=== PATIENT | male | born 1935 | race Two or more races ===

== ENCOUNTER 2017-03-05 13:11 | Inpatient (IN) | payer OTHER ==
[~2017-03-05] VITALS: Ht 152.4 cm; Wt 53.1 kg
[2017-03-05] MEDS ORDERED: NKM (13:24)
[2017-03-05 13:55] LABS: MEAN CORPUSCULAR HEMOGLOBIN 24.5 PG (27.0-31.0); MEAN CORPUSCULAR HGB CONC 30.6 G/DL (32.0-36.0); MEAN CORPUSCULAR VOLUME 80 FL (80-99); MEAN PLATELET VOLUME 8.1 FL (6.5-10.1); PLATELET COUNT 187 K/UL (150-450); RED BLOOD COUNT 6.51 M/UL (4.70-6.10); RED CELL DISTRIBUTION WIDTH 13.8 % (11.6-14.8); WHITE BLOOD COUNT 20.7 K/UL (4.8-10.8)
[2017-03-05 13:56] VITALS: BP 128/83
[2017-03-05 14:01] LABS: APPEARANCE,URINE CLEAR; KETONES,URINE NEGATIVE (NEGATIVE); LEUKOCYTE ESTERASE ,URINE 1+ (NEGATIVE); NITRITE,URINE NEGATIVE (NEGATIVE); PH,URINE 5 (4.5-8.0); PROTEIN,URINE 2+ (NEGATIVE); UROBILINOGEN,URINE NORMAL MG/DL (0.0-1.0)
--- NOTE | 2017-03-05 14:08 | Diagnostic Imaging Report ---
Indication: Dyspnea Comparison: None A single view chest radiograph was obtained. Findings: There is a nodular density in the left perihilar region that requires further evaluation. The left hilum is also somewhat prominent. 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 The heart is mildly enlarged. Bones are osteopenic. Impression: Abnormal nodular density in the left perihilar region. Recommend further evaluation with contrast enhanced CT of the chest. Generalized, moderate reticular interstitial markings. Suspect mild degree of fibrosis. Superimposed, more acute interstitial pneumonitis or edema not excluded. Cardiomegaly.
[2017-03-05 14:11] LABS: ALANINE AMINOTRANSFERASE 16 U/L (3-41); ALBUMIN/GLOBULIN RATIO 0.8 (1.0-2.7); ANION GAP 19 (5-15); ASPARTATE AMINO TRANSFERASE 36 U/L (5-40); CALCIUM 16.2 mg/dL (8.6-10.2); CARBON DIOXIDE 28 mEQ/L (20-30); CHLORIDE 93 mEQ/L (98-107); CREATININE 1.5 mg/dL (0.7-1.2); HEMOLYSIS 6; POTASSIUM 3.6 mEQ/L (3.4-4.9); SODIUM 140 mEQ/L (135-145); TOTAL PROTEIN 8.2 g/dL (6.6-8.7); TROPONIN I < 0.30 ng/mL (<=0.30)
[2017-03-05 14:12] LABS: BACTERIA,URINE FEW /HPF; HYALINE CASTS, URINE 0-2 /LPF; SQUAMOUS EPITHELIAL CELL,UR OCCASIONAL /LPF (NONE/OCC)
[2017-03-05 14:14] LABS: BAND NEUTROPHILS % (MANUAL) 2 % (0-8); BASOPHILS % (MANUAL) 0 % (0-2); EOSINOPHILS % (MANUAL) 1 % (0-3); LYMPHOCYTES % (MANUAL) 14 % (20-45); NEUTROPHILS % (MANUAL) 74 % (45-75); PLATELET ESTIMATE ADEQUATE; PLATELET MORPHOLOGY NORMAL; REFLEX LACTIC ACID YES OR NO YES; TOTAL CELLS COUNTED 100
[2017-03-05 14:15] LABS: HYPOCHROMASIA 1+
[2017-03-05 14:21] LABS: CKMB 3.1 ng/mL (< 6.7)
[2017-03-05] MEDS ORDERED: Azithromycin 500 MG in NS 275 ML IV ONE (14:30)
[2017-03-05] MEDS ORDERED: Piperacillin/Tazobactam 3.375 GM in NS 110 ML IVPB ONE (14:30)
[2017-03-05] MEDS ORDERED: Zosyn 3.375gm inj ONE ×2 (14:50→23:38)
--- NOTE | 2017-03-05 15:27 | Diagnostic Imaging Report ---
Indication: Headache Technique: Contiguous 5 mm thick transaxial imaging of the head obtained in a Siemens Sensation [address] scanner. Soft tissue and bone windows generated. Total Dose length Product (DLP): [address] Dose Index Volume (CTDIvol): 70.38 mGy Comparison: none Findings: There is mild prominence of the ventricles, basal cisterns, and cerebral sulci consistent with atrophy. Mild, nonspecific, white matter hypoattenuation is noted throughout the brain consistent with chronic small vessel disease. There is no midline shift, edema, acute hemorrhage, mass effect, or abnormal extra-axial fluid collections. Bones and extra osseous soft tissues are unremarkable. Impression: No acute intracranial bleed, mass effect or edema. Mild atrophy of the brain. Nonspecific white matter hypoattenuation probably due to chronic small vessel disease. The CT scanner at [facility] is accredited by the [employer] and the scans are performed using dose optimization techniques as appropriate to a performed exam including Automatic Exposure control.
--- NOTE | 2017-03-05 15:31 | Emergency Room Report ---
History of Present Illness General Chief Complaint: Chest Pain Source: Patient, Family Member Present Illness HPI 81-year-old male presents ED for evaluation. Daughter at bedside states that she brought patient to ER for evaluation because he is feeling increasingly weak. Also notes difficulty ambulating and slurred speech since Wednesday. He shouldn't was recently admitted to another hospital for treatment of pneumonia and subsequently discharged. Patient having persistent breathing problems and was referred to Dr. Carroll today for further evaluation. Given patient's current clinical state he was asked to come to the ER for further workup. Upon arrival patient is very lethargic but showing no signs of distress. Initially reported some chest pain but denies any chest pain at this time. Denies any fevers or chills. Denies cough. No other aggravating relieving factors. Denies any other associated symptoms Allergies: Coded Allergies: No Known Allergies (Unverified , 03/05/17) Patient History Past Medical History: none Past Surgical History: none Pertinent Family History: none Social History: Denies: alcohol use, drug use, smoking Immunizations: UTD Reviewed Nursing Documentation: PMH: Agreed, PSxH: Agreed Nursing Documentation-PMH Past Medical History: No History, Except For Review of Systems All Other Systems: negative except mentioned in HPI Physical Exam Vital Signs Date Time Temp Pulse Resp B/P Pulse Ox O2 Delivery O2 Flow Rate FiO2 03/05/17 13:20 97.9 105 27 162/98 95 Room Air Sp02 EP Interpretation: reviewed, normal General Appearance: no apparent distress, non-toxic, lethargic Head: normocephalic, atraumatic Eyes: bilateral eye PERRL, bilateral eye normal inspection ENT: hearing grossly normal, normal pharynx, no angioedema, normal voice Neck: full range of motion, supple/symm/no masses Respiratory: chest non-tender, lungs clear, normal breath sounds, speaking full sentences Cardiovascular #1: regular rate, rhythm, no edema Cardiovascular #2: 2+ carotid (R), 2+ carotid (L), 2+ radial (R), 2+ radial (L) , 2+ dorsalis pedis (R), 2+ dorsalis pedis (L) Gastrointestinal: normal bowel sounds, non tender, soft, non-distended, no guarding, no rebound Rectal: deferred Genitourinary: normal inspection, no CVA tenderness Musculoskeletal: back normal, gait/station normal, normal range of motion, non- tender, calf tenderness Neurologic: other - lethargic Psychiatric: other - lethargic Reflexes: 3+ bicep (R), 3+ bicep (L), 3+ tricep (R), 3+ tricep (L), 3+ knee (R) , 3+ knee (L) Skin: normal color, no rash, warm/dry, well hydrated Lymphatic: no adenopathy Procedures Critical Care Time Critical Care Time i. I feel this is a highly complex case requiring extensive working including EKG/Rhythm strip, Xray/CT/US, Blood/urine lab work, repeat exams while in ED, and administration of strong opiates/narcotics for pain control, admission to hospital or close patient follow up. Total time: 30 min bedside evaluation and treatment excludes procedures (EKG). Reason for critical care: Severe sepsis, hypercalcemia Possible complications: hypotension, hypertension, OK, shock, arrhythmias, metabolic acidosis, end organ damage, respiratory failure. Interventions: Labs, IV fluids, EKG, chest x-ray, CT chest, CT head, antibiotics Course: Patient brought in for increasing weakness. Concern for stroke. CT head negative. CT chest shows mass in lung with lytic lesions concerning for metastases. Lactic greater than 6. Calcium markedly elevated. Significant leukocytosis. Given fluids and antibiotics Consultations: nursing staff, EMS, family Performed by: Dr Canchola Tolerated well condition = serious j. because of unstable vital signs this patient had a condition that could potentially threaten life or limb. I feel this is a critical patient who required my full attention while patient was considered critical. 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 Recently admitted for pneumonia Differential diagnoses include: Pneumonia, CHF exacerbation, pneumothorax, fluid overload Clinical course Patient placed on stretcher. On conference assistant. After initial history and physical, I ordered nebulizer treatments. I ordered labs, IV fluids, EKG, chest x-ray, blood cultures, UA. Labs -marked leukocytosis noted, hemoglobin/hematocrit stable, BUN/Cr elevated, Ca markely elevated, lactate > 6 CXR - ? 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 Given antibiotics Case discussed with Dr. Carter and he agreed to the patient to his service for further care and support I feel this is a highly complex case requiring extensive working including EKG/ Rhythm strip, Xray/CT/US, Blood/urine lab work, repeat exams while in ED, and administration of strong opiates/narcotics for pain control, admission to hospital or close patient follow up. Diagnosis -renal insufficiency, hypercalcemia, severe sepsis, lung mass, metastasis Patient admitted to telemetry in serious condition Labs Test 03/05/17 13:43 03/05/17 13:49 03/05/17 14:28 White Blood Count 20.7 K/UL (4.8-10.8) Red Blood Count 6.51 M/UL (4.70-6.10) Hemoglobin 15.9 G/DL (14.2-18.0) Hematocrit 52.2 % (42.0-52.0) Mean Corpuscular Volume 80 FL (80-99) Mean Corpuscular Hemoglobin 24.5 PG (27.0-31.0) Mean Corpuscular Hemoglobin Concent 30.6 G/DL (32.0-36.0) Red Cell Distribution Width 13.8 % (11.6-14.8) Platelet Count 187 K/UL (150-450) Mean Platelet Volume 8.1 FL (6.5-10.1) Neutrophils (%) (Auto) % (45.0-75.0) Lymphocytes (%) (Auto) % (20.0-45.0) Monocytes (%) (Auto) % (1.0-10.0) Eosinophils (%) (Auto) % (0.0-3.0) Basophils (%) (Auto) % (0.0-2.0) Differential Total Cells Counted 100 Neutrophils % (Manual) 74 % (45-75) Lymphocytes % (Manual) 14 % (20-45) Monocytes % (Manual) 9 % (1-10) Eosinophils % (Manual) 1 % (0-3) Basophils % (Manual) 0 % (0-2) Band Neutrophils 2 % (0-8) Platelet Estimate Adequate Platelet Morphology Normal Hypochromasia 1+ Sodium Level 140 mEQ/L (135-145) Potassium Level 3.6 mEQ/L (3.4-4.9) Chloride Level 93 mEQ/L (98-107) Carbon Dioxide Level 28 mEQ/L (20-30) Anion Gap 19 (5-15) Blood Urea Nitrogen 43 mg/dL (7-23) Creatinine 1.5 mg/dL (0.7-1.2) Estimat Glomerular Filtration Rate mL/min (>60) Glucose Level 79 mg/dL (74-106) Lactic Acid Level 6.30 mmol/L (0.66-2.22) 6.10 mmol/L (0.66-2.22) Calcium Level 16.2 mg/dL (8.6-10.2) Total Bilirubin 0.6 mg/dL (0.0-1.2) Aspartate Amino Transf (AST/SGOT) 36 U/L (5-40) Alanine Aminotransferase (ALT/SGPT) 16 U/L (3-41) Alkaline Phosphatase 268 U/L (40-129) Total Creatine Kinase 44 U/L (38-174) Creatine Kinase MB 3.1 ng/mL (< 6.7) Creatine Kinase MB Relative Index 7.0 Troponin I < 0.30 ng/mL (<=0.30) Pro-B-Type Natriuretic Peptide 723 pg/mL (0-450) Total Protein 8.2 g/dL (6.6-8.7) Albumin 3.8 g/dL (3.5-5.2) Globulin 4.4 g/dL Albumin/Globulin Ratio 0.8 (1.0-2.7) Urine Color Yellow Urine Appearance Clear Urine pH 5 (4.5-8.0) Urine Specific [place] 1.030 (1.005-1.035) Urine Protein 2+ (NEGATIVE) Urine Glucose (UA) Negative (NEGATIVE) Urine Ketones Negative (NEGATIVE) Urine Occult Blood 1+ (NEGATIVE) Urine Nitrite Negative (NEGATIVE) Urine Bilirubin Negative (NEGATIVE) Urine Urobilinogen Normal MG/DL (0.0-1.0) Urine Leukocyte Esterase 1+ (NEGATIVE) Urine RBC 2-4 /HPF (0 - 0) Urine WBC 2-4 /HPF (0 - 0) Urine Squamous Epithelial Cells Occasional /LPF Urine Bacteria Few /HPF (NONE) Urine Hyaline Casts 0-2 /LPF (NONE) EKG Diagnostic Results Rate: normal ST Segments: no acute changes ASA given to the pt in ED: No Rhythm Strip Diag. Results EP Interpretation: yes Rhythm: NSR, no PVC's, no ectopy Chest X-Ray Diagnostic Results Chest X-Ray Diagnostic Results : Chest X-Ray Ordered: Yes # of Views/Limited/Complete: 1 View Indication: Chest Pain EP Interpretation: No Interpretation: no consolidation, no effusion, no pneumothorax, other - L perihilar nodular density Impression: Other - L lung mass Interpreting ER Provider: interpreted by radiologist CT/MRI/US Diagnostic Results CT/MRI/US Diagnostic Results #1: Imaging Test Ordered: CT head Impression no acute process CT/MRI/US Diagnostic Results #2: Imaging Test Ordered: CT Chest Impression Mass and left upper lobe consistent with bronchogenic carcinoma. Evidence of metastatic lymphadenopathy, evidence of metastasis to the bones and possibly liver Last Vital Signs Date Time Temp Pulse Resp B/P Pulse Ox O2 Delivery O2 Flow Rate FiO2 03/05/17 13:56 97.9 100 21 128/83 94 Room Air Status: improved Disposition: ADMITTED INPATIENT Condition: Serious Referrals: [facility],REFERRING (PCP) MYRANDA CANCHOLA M.D. Mar 05, 2017 15:31
[2017-03-05] MEDS ORDERED: Azithromycin Inj IV ONE (15:36)
[2017-03-05] MEDS ORDERED: Morphine Sulfate 2mg/ml Inj IVP ONE (15:47)
[2017-03-05 17:09] VITALS: BP 172/83
[2017-03-05 19:05] VITALS: BP 169/81
[2017-03-05 21:03] VITALS: BP 160/84
[2017-03-05] MEDS: Zosyn 3.375gm q8h **Extended infusion IVPB SCH ×2 (23:45)
[2017-03-06] VITALS: BP 152/84
[2017-03-06 00:45] LABS: TROPONIN I < 0.30 ng/mL (<=0.30)
[2017-03-06 04:00] VITALS: BP 158/86
[2017-03-06 07:49] VITALS: BP 143/75
[2017-03-06] MEDS: Zosyn 3.375gm q8h **Extended infusion IVPB SCH ×4 (08:17→16:03)
[2017-03-06 08:57] LABS: BASOPHILS % (AUTO) 0.8 % (0.0-2.0); EOSINOPHILS % (AUTO) 2.7 % (0.0-3.0); LYMPHOCYTES % (AUTO) 17.1 % (20.0-45.0); MEAN CORPUSCULAR HEMOGLOBIN 25.8 PG (27.0-31.0); MEAN CORPUSCULAR VOLUME 81 FL (80-99); MEAN PLATELET VOLUME 9.2 FL (6.5-10.1); MONOCYTES % (AUTO) 7.9 % (1.0-10.0); NEUTROPHILS % (AUTO) 71.5 % (45.0-75.0); PLATELET COUNT 171 K/UL (150-450); RED BLOOD COUNT 4.87 M/UL (4.70-6.10); RED CELL DISTRIBUTION WIDTH 14.1 % (11.6-14.8); WHITE BLOOD COUNT 15.4 K/UL (4.8-10.8)
[2017-03-06 09:01] LABS: ANION GAP 13 (5-15); CARBON DIOXIDE 27 mEQ/L (20-30); CHLORIDE 104 mEQ/L (98-107); CREATININE 1.4 mg/dL (0.7-1.2); HEMOLYSIS 3; POTASSIUM 3.5 mEQ/L (3.4-4.9); SODIUM 144 mEQ/L (135-145)
[2017-03-06 09:02] LABS: TROPONIN I < 0.30 ng/mL (<=0.30)
[2017-03-06] MEDS ORDERED: Tubing IV Secondary IV ONE (09:04)
[2017-03-06] MEDS ORDERED: NS 275ml ONE (09:04)
[2017-03-06 09:08] LABS: CALCIUM 13.6 mg/dL (8.6-10.2)
[2017-03-06 10:52] LABS: PHOSPHORUS 3.9 mg/dL (2.5-4.8)
[2017-03-06 11:29] VITALS: BP 153/63
[2017-03-06] MEDS ORDERED: Pamidronate Disodium Inj 60 MG in Sodium Chloride 550 ML IVPB ONE (12:00)
[2017-03-06 15:32] VITALS: BP 170/89
[2017-03-06 20:30] VITALS: BP 168/86
--- NOTE | 2017-03-06 23:30 | History and Physical Report ---
DATE OF ADMISSION: 03/05/2017 HISTORY OF PRESENT ILLNESS: This is an 81-year-old male, who was brought to the hospital by family with weakness. The patient had apparently seen his physician as an outside in the office and was advised admission. The patient reports shortness of breath. He reports generalized weakness. Denies any pain. He appeared lethargic on evaluation. In the emergency room, he was worked up and found to have hypercalcemia as well as a lung mass. PAST MEDICAL HISTORY: None reported. PREVIOUS SURGICAL HISTORY: None reported. SOCIAL HISTORY: The patient lives at home with family. No significant history of alcohol or tobacco usage. FAMILY HISTORY: Noncontributory. REVIEW OF SYSTEMS: Denied any headaches, hematemesis, melena, hematochezia, night sweats, or weight loss. PHYSICAL EXAMINATION: GENERAL: Reveals an 81-year-old male. VITAL SIGNS: Blood pressure 130/70, heart rate 96, respirations 18, he is afebrile, and O2 saturation 95% on room air. HEENT: Unremarkable. CHEST: Shows decreased breath sounds bilaterally. ABDOMEN: Soft. EXTREMITIES: There is no edema. NEUROLOGIC: Nonfocal. LABORATORY AND DIAGNOSTIC DATA: Lab testing shows white count 15.4, hemoglobin 12.6, and platelet count is normal. Chemistry is notable for calcium 13.6 on admission, ionized calcium this morning is 1.73. Troponin is negative. As discussed above, his x-ray of chest showed fullness in the hilar region. A CT of the chest has also been obtained, results of which are not available to me, however, per discussion with the ER physician, a right lung mass was also noted. IMPRESSION: 1. Lung mass. 2. 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 DISCUSSION: We will admit to the hospital. Start IV fluids. Aggressive hydration. We will consult Endocrinology due to hypercalcemia steroids and/or pamidronate. We will discuss with the family regarding need for further diagnostic testing and/or invasive procedures to diagnose carcinoma. The acute need would be however to correct the hypercalcemia. We will consult Oncology. We will follow carefully. We will also add empiric antibiotic treatment lactic acid and leukocytosis. Kei Carter M.D. DR: DELL JOB#: [id number] CC:
[2017-03-07 00:30] VITALS: BP 177/85
[2017-03-07] MEDS: Zosyn 3.375gm q8h **Extended infusion IVPB SCH ×6 (00:30→16:57)
[2017-03-07 04:00] VITALS: BP 158/61
[2017-03-07 08:00] VITALS: BP 157/89
[2017-03-07 08:17] LABS: MEAN CORPUSCULAR HEMOGLOBIN 25.4 PG (27.0-31.0); MEAN CORPUSCULAR HGB CONC 31.5 G/DL (32.0-36.0); MEAN CORPUSCULAR VOLUME 80 FL (80-99); MEAN PLATELET VOLUME 8.5 FL (6.5-10.1); PLATELET COUNT 163 K/UL (150-450); RED BLOOD COUNT 4.89 M/UL (4.70-6.10); WHITE BLOOD COUNT 14.5 K/UL (4.8-10.8)
[2017-03-07 08:19] LABS: ANION GAP 15 (5-15); CARBON DIOXIDE 25 mEQ/L (20-30); CHLORIDE 101 mEQ/L (98-107); CREATININE 1.3 mg/dL (0.7-1.2); HEMOLYSIS 6; POTASSIUM 3.2 mEQ/L (3.4-4.9); SODIUM 141 mEQ/L (135-145)
[2017-03-07 08:59] LABS: ANISOCYTOSIS 1+; BAND NEUTROPHILS % (MANUAL) 0 % (0-8); BASOPHILS % (MANUAL) 0 % (0-2); EOSINOPHILS % (MANUAL) 2 % (0-3); HYPOCHROMASIA 1+; LYMPHOCYTES % (MANUAL) 4 % (20-45); MICROCYTES 1+; NEUTROPHILS % (MANUAL) 86 % (45-75); PLATELET ESTIMATE ADEQUATE; PLATELET MORPHOLOGY NORMAL; TOTAL CELLS COUNTED 100
[2017-03-07 09:14] LABS: IONIZED CALCIUM 1.58 mmol/L (1.10-1.35)
--- NOTE | 2017-03-07 09:52 | Pulmonology Progress Note ---
Assessment/Plan Assessment/Plan IMPRESSION: 1. Lung mass. 2. 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 DISCUSSION: S/p pamidronate. We will discuss with the family regarding need for further diagnostic testing and/or invasive procedures to diagnose carcinoma. We will consult Oncology. We will follow carefully. On empiric antibiotic treatment due to lactic acidosis and leukocytosis. Subjective Interval Events: None Constitutional: Reports: no symptoms HEENT: Repors: no symptoms Respiratory: Reports: no symptoms Cardiovascular: Reports: no symptoms Allergies: Coded Allergies: No Known Allergies (Unverified , 03/05/17) Objective Last 24 Hour Vital Signs Date Time Temp Pulse Resp B/P Pulse Ox O2 Delivery O2 Flow Rate FiO2 03/07/17 08:00 99.2 77 20 157/89 94 Room Air 03/07/17 04:00 73 03/07/17 04:00 98.1 71 18 158/61 94 Room Air 03/07/17 00:30 97.9 68 20 177/85 96 Room Air 03/07/17 00:00 59 03/06/17 21:22 168/86 03/06/17 20:30 97.7 70 20 168/86 94 Room Air 03/06/17 20:20 66 03/06/17 16:00 70 03/06/17 15:32 98.2 72 20 170/89 95 Room Air 03/06/17 15:08 170/89 03/06/17 12:00 71 03/06/17 11:29 98.8 79 20 153/63 95 Room Air Intake and Output 03/06/17 03/07/17 19:00 07:00 Intake Total 3556.0 ml 2227.5 ml Output Total 1000 ml 1050 ml Balance 2556.0 ml 1177.5 ml Intake Oral 840 ml IV Total 2716.0 ml 2227.5 ml Output Urine Total 1000 ml 1050 ml # Voids 4 General Appearance: no acute distress HEENT: normocephalic Respiratory/Chest: chest wall non-tender Cardiovascular: normal peripheral pulses, normal rate Abdomen: normal bowel sounds, soft, non tender Microbiology Date/Time Source Procedure Growth Status 03/05/17 13:43 Blood Blood Culture - Preliminary NO GROWTH AFTER 24 HOURS Resulted 03/05/17 13:20 Blood Blood Culture - Preliminary NO GROWTH AFTER 24 HOURS Resulted Laboratory Tests 03/07/17 07:00: White Blood Count 14.5H, Red Blood Count 4.89, Hemoglobin 12.4L, Hematocrit 39.3L, Mean Corpuscular Volume 80, Mean Corpuscular Hemoglobin 25.4L, Mean Corpuscular Hemoglobin Concent 31.5L, Red Cell Distribution Width 14.0, Platelet Count 163, Mean Platelet Volume 8.5, Neutrophils (%) (Auto) , Lymphocytes (%) (Auto) , Monocytes (%) (Auto) , Eosinophils (%) (Auto) , Basophils (%) (Auto) , Differential Total Cells Counted 100, Neutrophils % ( Manual) 86H, Lymphocytes % (Manual) 4L, Monocytes % (Manual) 8, Eosinophils % ( Manual) 2, Basophils % (Manual) 0, Band Neutrophils 0, Platelet Estimate Adequate, Platelet Morphology Normal, Hypochromasia 1+, Anisocytosis 1+, Microcytosis 1+, Sodium Level 141, Potassium Level 3.2L, Chloride Level 101, Carbon Dioxide Level 25, Anion Gap 15, Blood Urea Nitrogen 33H, Creatinine 1.3H , Estimat Glomerular Filtration Rate , Glucose Level 37*L, Calcium Level 13.0H, Ionized Calcium (Measured) 1.58*H Current Medications Medications (Trade) Dose Ordered Sig/[place] Route PRN Reason Start Time Stop Time Status Last Admin Dose Admin Acetaminophen (Tylenol) 650 mg Q6H PRN ORAL Mild Pain/Temp > 100.5 03/05/17 22:15 04/04/17 22:14 Clonidine HCl 0.1 mg 0.1 mg Q6H PRN ORAL For High Blood Pressure 03/05/17 22:15 04/04/17 22:14 03/06/17 21:22 Dextrose STAT PRN IV Hypoglycemia 03/05/17 22:15 04/04/17 22:14 03/07/17 08:46 Piperacillin Sod/ Tazobactam Sod/ Dextrose (Zosyn/D5W) 110 ml @ 27.5 mls/hr Q8H IVPB 03/06/17 00:00 03/13/17 00:00 03/07/17 08:24 Potassium Chloride (K-Dur) 40 meq ONCE ONCE ORAL 03/07/17 09:45 03/07/17 09:46 UNV Sodium Chloride (Sodium Chloride 1000ml bag) 1,000 ml @ 200 mls/hr Q5H IV 03/05/17 23:00 04/04/17 22:59 03/07/17 05:29 Kei Carter MD Mar 07, 2017 09:52
[2017-03-07 12:10] VITALS: BP 175/99
[2017-03-07] MEDS: D5NS 1,000 ML IV SCH ×2 (13:30→23:30)
[2017-03-07 16:00] VITALS: BP 165/84
--- NOTE | 2017-03-07 17:15 | Consultation ---
DATE OF CONSULTATION: 03/07/2017 INFECTIOUS DISEASE CONSULT This consult is for coverage of Dr. Morelos. PRIMARY ATTENDING PHYSICIAN: Kei Carter M.D. REASON FOR CONSULTATION: Pneumonia. HISTORY OF PRESENT ILLNESS: This is an 81-year-old male admitted on 03/05/2017 from home with altered mental status, weakness, slurred speech, and shortness of breath. He was recently in an another facility for pneumonia. In the ER, the patient was found to have hypercalcemia, lactic acidosis, and mass-like consolidation in the lung. The patient is slightly confused and not a good source of history. MEDICATIONS: Zosyn, sodium chloride, Tylenol, and clonidine. He gets a dose of pamidronic. ALLERGIES: No known drug allergies. SOCIAL HISTORY: The patient had a history of smoking, quit five years ago. He is single. Lives at home. REVIEW OF SYSTEMS: Denies any pain, coughing, or shortness of breath at the present time. PHYSICAL EXAMINATION: VITAL SIGNS: Temperature 98.1 degrees, pulse 71, and blood pressure 158/61. The patient was afebrile since admission. HEAD AND NECK: Section conjunctivae. HEART: S1 and S2 regular. LUNGS: Clear. ABDOMEN: Soft. EXTREMITIES: No edema. He has finger clubbing. LABORATORY AND DIAGNOSTIC DATA: WBC 15.4, coming down from 20.7 at the time of admission, hemoglobin 12.6, hemoglobin 39.3, and platelets is 171,000. Sodium 144, potassium 3.5, chloride 104, bicarbonate 27, BUN 36, creatinine 1.4, and calcium is 13.6. CT scan of the chest showed 2.5 cm mass within the lingula suspected for a bronchogenic carcinoma, mass-like consolidation in the right upper posterior lobe, that was ill-defined, and also had bony metastatic lesions. IMPRESSION: Lung masses, likely bronchogenic carcinoma, cannot rule out accompanied pneumonia. The patient has hypercalcemia, metastatic bony lesions, and lactic acidosis. RECOMMENDATIONS: We will continue with Zosyn. The patient will be followed up by oncologist. At the end of my exam, I thank Dr. Carter for involving me in the care of this patient. Tyshawn Vences M.D. DR: MARTELL JOB#: [id number] CC:
[2017-03-07 20:13] VITALS: BP 188/90
[2017-03-08] VITALS (10 sets, daily range): BP systolic 148–175; BP diastolic 68–96
[2017-03-08] MEDS: Zosyn 3.375gm q8h **Extended infusion IVPB SCH ×6 (00:30→13:20)
[2017-03-08 08:23] LABS: INR 1.1 (0.9-1.1); PROTHROMBIN TIME 11.9 SEC (9.30-11.50)
--- NOTE | 2017-03-08 08:38 | Diagnostic Imaging Report ---
Indication: Dyspnea. Abnormal chest x-ray Technique: Continuous helical transaxial imaging of the chest was obtained from the thoracic inlet to the upper abdomen. No intravenous contrast was administered. Coronal 2-D reformats were also obtained. Total Dose length Product (DLP): [address] Dose Index Volume (CTDIvol): 14 mGy Comparison: none Findings: 2.5 cm mass with spiculated margins demonstrated within the lingula. Findings are concerning for bronchogenic carcinoma. 1.2 x 1.8 cm left anterior mediastinal node noted. Other smaller nodes are present air (window and the paratracheal aspect of the mediastinum. Difficult to completely exclude the possibility of left hilar nodes given the limitation of absence of IV contrast. There is also a masslike density in the posterior aspect of the right upper lobe measuring 4.2 x 2.5 CM. Is could be another mass or could be a rounded area of consolidation. There are extensive paraseptal blebs, peripheral honeycombing pattern with intervening interlobular and intralobular septal opacities consistent with fibrosis. There are multiple lytic lesions demonstrated throughout the spine, sternum and manubrium multiple ribs consistent metastatic neoplasm. There is no definite pathologic fracture identified. There are also a few discrete hypodensities within the liver not well characterized. However given the other findings, metastatic neoplasm to the liver is also suspected. There is generalized cardiomegaly present. Aorta is ectatic with moderate mural opacification. There is a left renal hypodensity not imaged on this study that could be a cyst. Impression: 2.5 cm spiculated mass in the anterior left upper lobe likely in the lingula consistent with bronchogenic carcinoma. Evidence of metastatic lymphadenopathy within the mediastinum, possibly in the left hilum as well, osseous structures and probably within the liver. 4.2 x 2.5 cm area of rounded consolidation in the right upper lobe posteriorly. Rounded atelectasis/pneumonia versus neoplasm. 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
[2017-03-08] MEDS: D5NS 1,000 ML IV SCH ×2 (09:30→19:30)
--- NOTE | 2017-03-08 10:44 | Pre-Procedure Note/Attestation ---
Pre-Procedure Note/Attestation Complete Prior to Procedure Planned Procedure: left Procedure Narrative: CT guided lung biopsy Indications for Procedure Pre-Operative Diagnosis: Lung mass Attestation I attest that I discussed the nature of the procedure; its benefits; risks and complications; and alternatives (and the risks and benefits of such alternatives ), prior to the procedure, with the patient (or the patient's legal financial foundations representative). I attest that, if there was a reasonable possibility of needing a blood transfusion, the patient (or the patient's legal financial foundations representative) was given the [facility] standardized written summary, pursuant to the Jarad Tony Blood Safety Act ([place] Health and Safety Code # 1645, as amended). I attest that I re-evaluated the patient just prior to the surgery and that there has been no change in the patient's H&P, except as documented below: Discussed by phone with pt's. daughter Mylene at 1055 a.m. OSCAR CHILDERS M.D. Mar 08, 2017 10:44
[2017-03-08] MEDS ORDERED: Lidocaine 1% 10mg/ml/EPI 0.01mg/ml 50ml INJ ONE (11:00)
--- NOTE | 2017-03-08 12:46 | Diagnostic Imaging Report ---
Indication: Left lung mass demonstrated on prior CT scan Technique: Informed consent obtained prior to the procedure from patient's daughter. Residual timeout performed. Prior imaging studies reviewed. Localizing slices obtained. Intended puncture site sterilely prepped and draped. Local anesthesia with one lidocaine. Under CT guidance, a 19-gauge guide needle was advanced into the periphery of the left lung mass. Care was taken to avoid traversing aerated lung. CT imaging confirmed satisfactory placement of the guide needle. Total of 4 specimens obtained using coaxially inserted 20-gauge automated biopsy gun. Specimens placed in formalin, sent to pathology for histologic analysis. Followup CT images obtained, demonstrating a small medial and basilar pneumothorax. Patient otherwise tolerated the procedure well. Total dose length product 1322 mGycm. CTDIvol(s) 12, 10, 11x5, 12 mGy Comparison: Reference made to CT scan 03/05/2017 Findings: Intraprocedural images document needle placement within the target mass in the left upper lobe. Completion images demonstrate a very small pneumothorax. Impression: Left lung mass biopsy, as described. Final pathology pending
--- NOTE | 2017-03-08 13:29 | Diagnostic Imaging Report ---
Indication: S/P LUNGBX post lung biopsy Technique: One view of the chest Comparison: 03/05/2017 Findings: Left suprahilar mass is again demonstrated. Extensive chronic interstitial disease is again demonstrated. A small sliver of lucency at the medial left lung base could represent small basilar pneumothorax demonstrated on completion CT imaging. No other pneumothorax is evident Impression: Equivocal small medial basilar pneumothorax, may correspond to findings on completion CT after lung biopsy Other stable findings as described
--- NOTE | 2017-03-08 13:34 | Pulmonology Progress Note ---
Assessment/Plan Assessment/Plan IMPRESSION: 1. Lung mass. 2. 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 3. Hypoglycemia DISCUSSION: S/p pamidronate. For lung biopsy today Will check CXR in AM On empiric antibiotic treatment due to lactic acidosis and leukocytosis. Subjective Interval Events: Hypoglycemic; started on D5NS; received LAsix. Constitutional: Reports: no symptoms HEENT: Repors: no symptoms Respiratory: Reports: shortness of breath Cardiovascular: Reports: no symptoms Gastrointestinal/Abdominal: Reports: no symptoms Allergies: Coded Allergies: No Known Allergies (Unverified , 03/05/17) Objective Last 24 Hour Vital Signs Date Time Temp Pulse Resp B/P Pulse Ox O2 Delivery O2 Flow Rate FiO2 03/08/17 12:00 97.8 90 20 155/75 95 Room Air 03/08/17 11:15 81 30 156/82 100 Nasal Cannula 2.0 03/08/17 11:10 82 22 159/75 100 Nasal Cannula 2.0 03/08/17 11:05 81 27 175/96 100 Nasal Cannula 2.0 03/08/17 10:43 72 24 2.0 03/08/17 08:00 97.6 68 19 169/87 97 Room Air 03/08/17 04:00 68 03/08/17 04:00 97.4 73 19 159/68 96 03/08/17 00:00 78 03/08/17 00:00 98.2 74 18 163/81 97 Room Air 03/07/17 21:24 188/90 03/07/17 20:13 97.7 86 18 188/90 95 Room Air 03/07/17 20:00 80 03/07/17 16:30 78 03/07/17 16:00 99.3 82 18 165/84 95 Room Air Intake and Output 03/07/17 03/08/17 18:59 06:59 Intake Total 2207.5 ml 1372.5 ml Output Total 550 ml Balance 2207.5 ml 822.5 ml Intake Oral 220 ml 240 ml IV Total 1987.5 ml 1132.5 ml Output Urine Total 550 ml # Voids 1 3 General Appearance: no acute distress HEENT: normocephalic Respiratory/Chest: chest wall non-tender, decreased breath sounds Cardiovascular: normal peripheral pulses, normal rate Microbiology Date/Time Source Procedure Growth Status 03/05/17 13:43 Blood Blood Culture - Preliminary NO GROWTH AFTER 48 HOURS Resulted Laboratory Tests 03/08/17 07:10: Prothrombin Time 11.9H, Prothromb Time International Ratio 1.1, Activated Partial Thromboplast Time 29 Current Medications Medications (Trade) Dose Ordered Sig/Newton Route PRN Reason Start Time Stop Time Status Last Admin Dose Admin Acetaminophen (Tylenol) 650 mg Q6H PRN ORAL Mild Pain/Temp > 100.5 03/05/17 22:15 04/04/17 22:14 Clonidine HCl 0.1 mg 0.1 mg Q6H PRN ORAL For High Blood Pressure 03/05/17 22:15 04/04/17 22:14 03/07/17 21:24 Dextrose (Dextrose 50%) STAT PRN IV Hypoglycemia 03/05/17 22:15 04/04/17 22:14 03/07/17 12:18 Dextrose/Sodium Chloride (D5ns) 1,000 ml @ 100 mls/hr Q10H IV 03/07/17 13:30 04/06/17 13:29 03/07/17 23:30 Piperacillin Sod/ Tazobactam Sod 3.375 gm/Dextrose 110 ml @ 27.5 mls/hr Q8H IVPB 03/06/17 00:00 03/13/17 00:00 03/08/17 13:20 Kei Carter MD Mar 08, 2017 13:34
--- NOTE | 2017-03-08 14:29 | Diagnostic Imaging Report ---
APPROVED REPORT CPT Code: 35134 Present Symptoms Lower Extremity Pain: Bilateral BILATERAL: Imaging reveals a patent deep venous system bilaterally. There is no evidence of thrombus within the femoral, popliteal or tibial segments. The greater saphenous veins are also within normal limits. Doppler indicates normal spontaneous flow within these segments.
--- NOTE | 2017-03-08 15:18 | Infectious Diseases Prog Note ---
Assessment/Plan Assessment/Plan A; Pneumonia Lung mass s/p biopsy Hypercalcemia Metastatic bone disease P; Continue Zosyn case was D/W family Subjective ROS Limited/Unobtainable: Yes Constitutional: Reports: no symptoms Respiratory: Reports: dry cough Allergies: Coded Allergies: No Known Allergies (Unverified , 03/05/17) Objective Vital Signs Last 24 Hour Vital Signs Date Time Temp Pulse Resp B/P Pulse Ox O2 Delivery O2 Flow Rate FiO2 03/08/17 12:00 97.8 90 20 155/75 95 Room Air 03/08/17 12:00 96 03/08/17 11:15 81 30 156/82 100 Nasal Cannula 2.0 03/08/17 11:10 82 22 159/75 100 Nasal Cannula 2.0 03/08/17 11:05 81 27 175/96 100 Nasal Cannula 2.0 03/08/17 10:43 72 24 2.0 03/08/17 08:00 97.6 68 19 169/87 97 Room Air 03/08/17 08:00 68 03/08/17 04:00 68 03/08/17 04:00 97.4 73 19 159/68 96 03/08/17 00:00 78 03/08/17 00:00 98.2 74 18 163/81 97 Room Air 03/07/17 21:24 188/90 03/07/17 20:13 97.7 86 18 188/90 95 Room Air 03/07/17 20:00 80 03/07/17 16:30 78 03/07/17 16:00 99.3 82 18 165/84 95 Room Air Height (Feet): 5 Height (Inches): 0.00 Weight (Pounds): 117 General Appearance: no acute distress HEENT: mucous membranes moist Respiratory/Chest: lungs clear Cardiovascular: normal rate Abdomen: soft, non tender Extremities: no edema Neurologic/Psychiatric: alert, responsive Laboratory Tests Test 03/08/17 07:10 Prothrombin Time 11.9 SEC (9.30-11.50) H Prothromb Time International Ratio 1.1 (0.9-1.1) Activated Partial Thromboplast Time 29 SEC (23-33) Current Medications Medications (Trade) Dose Ordered Sig/Newton Route PRN Reason Start Time Stop Time Status Last Admin Dose Admin Acetaminophen (Tylenol) 650 mg Q6H PRN ORAL Mild Pain/Temp > 100.5 03/05/17 22:15 04/04/17 22:14 Clonidine HCl 0.1 mg 0.1 mg Q6H PRN ORAL For High Blood Pressure 03/05/17 22:15 04/04/17 22:14 03/07/17 21:24 Dextrose (Dextrose 50%) STAT PRN IV Hypoglycemia 03/05/17 22:15 04/04/17 22:14 03/07/17 12:18 Dextrose/Sodium Chloride (D5ns) 1,000 ml @ 100 mls/hr Q10H IV 03/07/17 13:30 04/06/17 13:29 03/07/17 23:30 Piperacillin Sod/ Tazobactam Sod 3.375 gm/Dextrose 110 ml @ 27.5 mls/hr Q8H IVPB 03/06/17 00:00 03/13/17 00:00 03/08/17 13:20 NAOMY FORTE Mar 08, 2017 15:18
[2017-03-08] MEDS ORDERED: D5NS 1000ml IV ONE (16:21)
[2017-03-08] MEDS ORDERED: Tubing IV Secondary IV ONE (16:21)
--- NOTE | 2017-03-08 16:30 | Consultation ---
DATE OF CONSULTATION: 03/07/2017 CONSULTING PHYSICIAN: Herbie Page M.D. REFERRING PHYSICIAN: Dr. Carter REASON FOR CONSULTATION: Severe hypercalcemia. History Of Present Illness: The patient is an 81-year-old male without any significant past medical history went to the emergency room for evaluation of increased weakness. The patient has been having difficulty ambulating as well as speech since Wednesday. He was recently admitted to a different hospital with pneumonia and was subsequently discharged and he has been having persistent weakness. The patient was referred to the emergency room for evaluation. Upon evaluation, the patient was noted to have a calcium of 16 and also was diagnosed with a large mass. Endocrinology was consulted to assist in the management of hypercalcemia. PAST MEDICAL HISTORY: None. PAST SURGICAL HISTORY: None. SOCIAL HISTORY: He lives at home with family. No history of smoking, alcohol, or drug use. FAMILY HISTORY: Noncontributory. REVIEW OF SYSTEMS: Limited. A 12-point review of systems was done. PHYSICAL EXAMINATION: GENERAL: The patient appears dehydrated. VITAL SIGNS: Blood pressure 130/70, heart rate 96, and respiratory rate 18. HEENT: Pupils are equal and reactive to light. Sclerae are anicteric. NECK: No JVD. No thyromegaly. No bruit. LUNGS: Clear. HEART: Regular rate and rhythm. ABDOMEN: Positive bowel sounds. EXTREMITIES: No clubbing, cyanosis, or edema. LABORATORY AND DIAGNOSTIC DATA: WBC 20,000, hemoglobin 15, hematocrit 52.2, and platelets of 187,000. Sodium 144, potassium 3.5, chloride 104, CO2 of 37, BUN 30, creatinine 1.4, and calcium of 16. DIAGNOSES: 1. Hypercalcemia. 2. Lung mass. 3. Generalized weakness. 4. Acute kidney injury. 5. Lactic acidosis. 6. Sepsis. Discussion: The case of hypercalcemia needs to be identified whether this is PTH mediated or not has to be determined by sending the PTH value, The patient needs to be treated with IV fluids with saline. We will order dose of Aredia 60 mg also was done appropriate studies including PTH, PTHRP, vitamin D, iron, calcium, phosphorus in order to determine the underlying cause of hypercalcemia. The possible etiologies could be hypercalcemia of malignancy vs humoral hypercalcemia due to PTHRP or underlying primary hyperparathyroidism. Thank you Dr. Carter, for the courtesy of this consultation. Herbie Page M.D. DR: Romero JOB#: [id number] CC: ALONDRA
[2017-03-09] VITALS (7 sets, daily range): BP systolic 102–165; BP diastolic 68–87
[2017-03-09] MEDS: Zosyn 3.375gm q8h **Extended infusion IVPB SCH ×8 (00:05→23:27)
[2017-03-09] MEDS: D5NS 1,000 ML IV SCH ×2 (05:55→15:56)
[2017-03-09 06:18] LABS: BASOPHILS % (AUTO) 0.9 % (0.0-2.0); EOSINOPHILS % (AUTO) 2.9 % (0.0-3.0); LYMPHOCYTES % (AUTO) 14.8 % (20.0-45.0); MEAN CORPUSCULAR HEMOGLOBIN 25.1 PG (27.0-31.0); MEAN CORPUSCULAR HGB CONC 31.5 G/DL (32.0-36.0); MEAN CORPUSCULAR VOLUME 80 FL (80-99); MEAN PLATELET VOLUME 8.1 FL (6.5-10.1); NEUTROPHILS % (AUTO) 72.4 % (45.0-75.0); PLATELET COUNT 134 K/UL (150-450); RED BLOOD COUNT 4.76 M/UL (4.70-6.10); RED CELL DISTRIBUTION WIDTH 13.9 % (11.6-14.8); WHITE BLOOD COUNT 17.8 K/UL (4.8-10.8)
[2017-03-09 07:19] LABS: ANION GAP 19 (5-15); CALCIUM 9.7 mg/dL (8.6-10.2); CARBON DIOXIDE 22 mEQ/L (20-30); CHLORIDE 98 mEQ/L (98-107); CREATININE 0.9 mg/dL (0.7-1.2); HEMOLYSIS 0; POTASSIUM 3.3 mEQ/L (3.4-4.9); SODIUM 139 mEQ/L (135-145)
[2017-03-09 07:30] LABS: IONIZED CALCIUM 1.17 mmol/L (1.10-1.35)
--- NOTE | 2017-03-09 08:17 | Pulmonology Progress Note ---
Assessment/Plan Assessment/Plan IMPRESSION: 1. Lung mass. 2. 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 Hypoglycemia; resolved DISCUSSION: S/p pamidronate. S/p lung biopsy On empiric antibiotic treatment due to lactic acidosis and leukocytosis. DC planning Subjective Interval Events: Feeling well; eating breakfast Constitutional: Reports: no symptoms HEENT: Repors: no symptoms Respiratory: Reports: no symptoms Cardiovascular: Reports: no symptoms Gastrointestinal/Abdominal: Reports: no symptoms Allergies: Coded Allergies: No Known Allergies (Unverified , 03/05/17) Objective Last 24 Hour Vital Signs Date Time Temp Pulse Resp B/P Pulse Ox O2 Delivery O2 Flow Rate FiO2 03/09/17 04:21 72 03/09/17 04:00 97.3 71 18 156/76 97 Room Air 03/09/17 00:00 97.6 76 18 158/80 98 Room Air 2.0 03/08/17 23:28 72 03/08/17 20:51 78 03/08/17 20:00 97.6 70 18 148/72 95 Room Air 2.0 03/08/17 18:26 78 03/08/17 17:18 163/88 03/08/17 16:00 97.0 78 20 170/93 95 Room Air 03/08/17 12:00 97.8 90 20 155/75 95 Room Air 03/08/17 12:00 96 03/08/17 11:15 81 30 156/82 100 Nasal Cannula 2.0 03/08/17 11:10 82 22 159/75 100 Nasal Cannula 2.0 03/08/17 11:05 81 27 175/96 100 Nasal Cannula 2.0 03/08/17 10:43 72 24 2.0 Intake and Output 03/08/17 03/09/17 19:00 07:00 Intake Total 300 ml Output Total 400 ml Balance 300 ml -400 ml Intake Oral 300 ml Output Urine Total 400 ml # Voids 3 General Appearance: no acute distress HEENT: normocephalic Respiratory/Chest: chest wall non-tender, lungs clear Cardiovascular: normal peripheral pulses, normal rate Abdomen: normal bowel sounds, soft, non tender Laboratory Tests 03/09/17 04:50: White Blood Count 17.8H, Red Blood Count 4.76, Hemoglobin 11.9L, Hematocrit 37.9L, Mean Corpuscular Volume 80, Mean Corpuscular Hemoglobin 25.1L, Mean Corpuscular Hemoglobin Concent 31.5L, Red Cell Distribution Width 13.9, Platelet Count 134L, Mean Platelet Volume 8.1, Neutrophils (%) (Auto) 72.4, Lymphocytes (%) (Auto) 14.8L, Monocytes (%) (Auto) 9.0, Eosinophils (%) (Auto) 2.9, Basophils (%) (Auto) 0.9, Sodium Level 139, Potassium Level 3.3L, Chloride Level 98, Carbon Dioxide Level 22, Anion Gap 19H, Blood Urea Nitrogen 18, Creatinine 0.9, Estimat Glomerular Filtration Rate , Glucose Level 76, Calcium Level 9.7, Ionized Calcium (Measured) 1.17 Current Medications Medications (Trade) Dose Ordered Sig/Newton Route PRN Reason Start Time Stop Time Status Last Admin Dose Admin Acetaminophen (Tylenol) 650 mg Q6H PRN ORAL Mild Pain/Temp > 100.5 03/05/17 22:15 04/04/17 22:14 Clonidine HCl 0.1 mg 0.1 mg Q6H PRN ORAL For High Blood Pressure 03/05/17 22:15 04/04/17 22:14 03/08/17 17:18 Dextrose (Dextrose 50%) STAT PRN IV Hypoglycemia 03/05/17 22:15 04/04/17 22:14 03/07/17 12:18 Dextrose/Sodium Chloride (D5ns) 1,000 ml @ 100 mls/hr Q10H IV 03/07/17 13:30 04/06/17 13:29 03/09/17 05:55 Piperacillin Sod/ Tazobactam Sod 3.375 gm/Dextrose 110 ml @ 27.5 mls/hr Q8H IVPB 03/06/17 00:00 03/13/17 00:00 03/09/17 00:05 Kei Carter MD Mar 09, 2017 08:17
--- NOTE | 2017-03-09 09:32 | Diagnostic Imaging Report ---
Indication: Abnormal breath sounds Comparison: 03/08/17 A single view chest radiograph was obtained. Findings: Interstitial opacities are again demonstrated with patchy asymmetric distribution throughout the lung olivarez bilaterally but appearing similar in extent and distribution. Cardiomegaly is again demonstrated. The bones are osteopenic. Impression: Interstitial disease likely fibrosis without significant change. There may very well be superimposed edema or pneumonitis.
--- NOTE | 2017-03-09 09:52 | Diagnostic Imaging Report ---
Indication: Dyspnea. Status post lung biopsy. Comparison: 03/08/17 at an earlier time A single view chest radiograph was obtained. Findings: There is no pneumothorax. There is a background of interstitial densities with asymmetric distribution likely due to fibrosis. There is evidence of slightly increased since initial markings compared to the prior study which may be superimposed edema. Heart is enlarged. Impression: No pneumothorax Suspected mild interstitial edema superimposed on fibrosis
--- NOTE | 2017-03-09 11:48 | Infectious Diseases Prog Note ---
Assessment/Plan Assessment/Plan antibiotics : zosyn A 1. pneumonia 2. leucocytosis 3. lung mass s/p biopsy 4. hypercalcemia resolved P 1. continue zosyn 2. will follow up cultures Subjective Constitutional: Denies: chills, fever Respiratory: Denies: dry cough, shortness of breath Gastrointestinal/Abdominal: Denies: diarrhea, nausea, vomiting Musculoskeletal: Denies: pain Allergies: Coded Allergies: No Known Allergies (Unverified , 03/05/17) Objective Vital Signs Last 24 Hour Vital Signs Date Time Temp Pulse Resp B/P Pulse Ox O2 Delivery O2 Flow Rate FiO2 03/09/17 11:06 165/87 03/09/17 08:00 97.7 71 17 148/68 97 Room Air 03/09/17 08:00 81 03/09/17 04:21 72 03/09/17 04:00 97.3 71 18 156/76 97 Room Air 03/09/17 00:00 97.6 76 18 158/80 98 Room Air 2.0 03/08/17 23:28 72 03/08/17 20:51 78 03/08/17 20:00 97.6 70 18 148/72 95 Room Air 2.0 03/08/17 18:26 78 03/08/17 17:18 163/88 03/08/17 16:00 97.0 78 20 170/93 95 Room Air 03/08/17 12:00 97.8 90 20 155/75 95 Room Air 03/08/17 12:00 96 Height (Feet): 5 Height (Inches): 0.00 Weight (Pounds): 117 Respiratory/Chest: lungs clear Cardiovascular: normal rate, regular rhythm, no gallop/murmur Abdomen: soft, non tender Extremities: no edema Laboratory Tests Test 03/09/17 04:50 White Blood Count 17.8 K/UL (4.8-10.8) H Red Blood Count 4.76 M/UL (4.70-6.10) Hemoglobin 11.9 G/DL (14.2-18.0) L Hematocrit 37.9 % (42.0-52.0) L Mean Corpuscular Volume 80 FL (80-99) Mean Corpuscular Hemoglobin 25.1 PG (27.0-31.0) L Mean Corpuscular Hemoglobin Concent 31.5 G/DL (32.0-36.0) L Red Cell Distribution Width 13.9 % (11.6-14.8) Platelet Count 134 K/UL (150-450) L Mean Platelet Volume 8.1 FL (6.5-10.1) Neutrophils (%) (Auto) 72.4 % (45.0-75.0) Lymphocytes (%) (Auto) 14.8 % (20.0-45.0) L Monocytes (%) (Auto) 9.0 % (1.0-10.0) Eosinophils (%) (Auto) 2.9 % (0.0-3.0) Basophils (%) (Auto) 0.9 % (0.0-2.0) Sodium Level 139 mEQ/L (135-145) Potassium Level 3.3 mEQ/L (3.4-4.9) L Chloride Level 98 mEQ/L (98-107) Carbon Dioxide Level 22 mEQ/L (20-30) Anion Gap 19 (5-15) H Blood Urea Nitrogen 18 mg/dL (7-23) Creatinine 0.9 mg/dL (0.7-1.2) Estimat Glomerular Filtration Rate mL/min (>60) Glucose Level 76 mg/dL (74-106) Calcium Level 9.7 mg/dL (8.6-10.2) Ionized Calcium (Measured) 1.17 mmol/L (1.10-1.35) EDGARDO VELARDE Mar 09, 2017 11:48
[2017-03-09 14:46] LABS: CALCIUM 14.6 mg/dL (8.6-10.2); PTH INTACT <6 pg/mL (15-65)
[2017-03-09] MEDS ORDERED: KCl 10% 20 mEq/15ml liquid NG ONE (16:00)
[2017-03-09] MEDS: Megace 400mg/10ml Susp ORAL SCH (18:04)
[2017-03-10] MEDS: D5NS 1,000 ML IV SCH ×2 (01:30→11:38)
[2017-03-10 03:54] VITALS: BP 148/74
--- NOTE | 2017-03-10 06:11 | General Progress Note ---
Assessment/Plan Problem List: (1) Hypercalcemia ICD Codes: E83.52 - Hypercalcemia SNOMED: 09282744 (2) Lung mass ICD Codes: R91.8 - Other nonspecific abnormal finding of lung field SNOMED: 759938727 (3) Severe sepsis ICD Codes: A41.9 - Sepsis, unspecified organism; R65.20 - Severe sepsis without septic shock SNOMED: 65640377 Assessment/Plan hypercalcemia resolved the etiology is "non PTH" mediated since PTH level is undetectable in order to prevent recurrence of hypercalcemia the underlying malignancy needs to be treated lung mass biopsy result is pending Subjective Allergies: Coded Allergies: No Known Allergies (Unverified , 03/05/17) All Systems: reviewed and negative except above Subjective he is feeling better Objective Last 24 Hour Vital Signs Date Time Temp Pulse Resp B/P Pulse Ox O2 Delivery O2 Flow Rate FiO2 03/10/17 04:00 68 03/10/17 03:54 98.8 73 18 148/74 97 Room Air 03/10/17 00:00 70 03/09/17 23:58 98.4 75 19 137/70 94 Room Air 03/09/17 20:06 98.2 87 20 151/80 93 Room Air 03/09/17 20:00 90 03/09/17 16:00 96.6 76 17 150/85 97 Room Air 03/09/17 16:00 80 03/09/17 12:00 97.2 74 18 165/87 95 Room Air 03/09/17 12:00 64 03/09/17 11:06 165/87 03/09/17 08:00 97.7 71 17 148/68 97 Room Air 03/09/17 08:00 81 Intake and Output 03/09/17 03/10/17 19:00 07:00 Intake Total 1130.0 ml 920.0 ml Output Total 400 ml Balance 1130.0 ml 520.0 ml Intake Oral 520 ml IV Total 610.0 ml 920.0 ml Output Urine Total 400 ml # Voids 5 # Bowel Movements 1 Height (Feet): 5 Height (Inches): 0.00 Weight (Pounds): 117 General Appearance: no apparent distress Neck: normal alignment Cardiovascular: normal peripheral pulses Respiratory/Chest: chest wall non-tender Abdomen: normal bowel sounds Pelvis: normal external exam Edema: no edema noted Arm (L), no edema noted Arm (R), no edema noted Leg (L), no edema noted Leg (R), no edema noted Pedal (L), no edema noted Pedal (R), no edema noted Generalized Objective Current Medications Medications (Trade) Dose Ordered Sig/Newton Route PRN Reason Start Time Stop Time Status Last Admin Dose Admin Acetaminophen (Tylenol) 650 mg Q6H PRN ORAL Mild Pain/Temp > 100.5 03/05/17 22:15 04/04/17 22:14 Clonidine HCl 0.1 mg 0.1 mg Q6H PRN ORAL For High Blood Pressure 03/05/17 22:15 04/04/17 22:14 03/09/17 11:06 Dextrose (Dextrose 50%) STAT PRN IV Hypoglycemia 03/05/17 22:15 04/04/17 22:14 03/07/17 12:18 Dextrose/Sodium Chloride (D5ns) 1,000 ml @ 100 mls/hr Q10H IV 03/07/17 13:30 04/06/17 13:29 03/09/17 15:56 Megestrol Acetate (Megace) 400 mg DAILY ORAL 03/09/17 18:00 04/08/17 17:59 03/09/17 18:04 Piperacillin Sod/ Tazobactam Sod 3.375 gm/Dextrose 110 ml @ 27.5 mls/hr Q8H IVPB 03/06/17 00:00 03/13/17 00:00 03/09/17 23:27 GAVINO JAIME Mar 10, 2017 06:10
[2017-03-10 08:00] LABS: BASOPHILS % (AUTO) 1.1 % (0.0-2.0); EOSINOPHILS % (AUTO) 3.4 % (0.0-3.0); LYMPHOCYTES % (AUTO) 13.9 % (20.0-45.0); MEAN CORPUSCULAR HEMOGLOBIN 25.6 PG (27.0-31.0); MEAN CORPUSCULAR HGB CONC 32.1 G/DL (32.0-36.0); MEAN CORPUSCULAR VOLUME 80 FL (80-99); MEAN PLATELET VOLUME 9.3 FL (6.5-10.1); NEUTROPHILS % (AUTO) 71.6 % (45.0-75.0); PLATELET COUNT 133 K/UL (150-450); RED BLOOD COUNT 4.68 M/UL (4.70-6.10); RED CELL DISTRIBUTION WIDTH 14.1 % (11.6-14.8); WHITE BLOOD COUNT 17.2 K/UL (4.8-10.8)
[2017-03-10 08:01] LABS: ANION GAP 14 (5-15); CALCIUM 8.8 mg/dL (8.6-10.2); CARBON DIOXIDE 25 mEQ/L (20-30); CHLORIDE 102 mEQ/L (98-107); HEMOLYSIS 5; POTASSIUM 3.7 mEQ/L (3.4-4.9); SODIUM 141 mEQ/L (135-145)
[2017-03-10 08:02] VITALS: BP 162/86
[2017-03-10] MEDS: Zosyn 3.375gm q8h **Extended infusion IVPB SCH ×2 (08:05)
[2017-03-10] MEDS: Megace 400mg/10ml Susp ORAL SCH (08:06)
[2017-03-10 09:21] LABS: VITAMIN D 25-OH TOTAL 12 ng/mL (.)
--- NOTE | 2017-03-10 09:37 | Pulmonology Progress Note ---
Assessment/Plan Assessment/Plan IMPRESSION: 1. Lung mass. 2. 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 Hypoglycemia; resolved DISCUSSION: S/p pamidronate. S/p lung biopsy On empiric antibiotic treatment due to lactic acidosis and leukocytosis. DC planning to snf Subjective Interval Events: Better Constitutional: Reports: no symptoms HEENT: Repors: no symptoms Respiratory: Reports: no symptoms Cardiovascular: Reports: no symptoms Gastrointestinal/Abdominal: Reports: no symptoms Allergies: Coded Allergies: No Known Allergies (Unverified , 03/05/17) Objective Last 24 Hour Vital Signs Date Time Temp Pulse Resp B/P Pulse Ox O2 Delivery O2 Flow Rate FiO2 03/10/17 08:02 97.3 78 20 162/86 99 Room Air 03/10/17 04:00 68 03/10/17 03:54 98.8 73 18 148/74 97 Room Air 03/10/17 00:00 70 03/09/17 23:58 98.4 75 19 137/70 94 Room Air 03/09/17 20:06 98.2 87 20 151/80 93 Room Air 03/09/17 20:00 90 03/09/17 16:00 96.6 76 17 150/85 97 Room Air 03/09/17 16:00 80 03/09/17 12:00 97.2 74 18 165/87 95 Room Air 03/09/17 12:00 64 03/09/17 11:06 165/87 Intake and Output 03/09/17 03/10/17 19:00 07:00 Intake Total 1130.0 ml 1020.0 ml Output Total 400 ml Balance 1130.0 ml 620.0 ml Intake Oral 520 ml IV Total 610.0 ml 1020.0 ml Output Urine Total 400 ml # Voids 5 # Bowel Movements 1 General Appearance: no acute distress HEENT: normocephalic Respiratory/Chest: chest wall non-tender, lungs clear Cardiovascular: normal peripheral pulses, normal rate Laboratory Tests 03/10/17 07:10: White Blood Count 17.2H, Red Blood Count 4.68L, Hemoglobin 12.0L, Hematocrit 37.3L, Mean Corpuscular Volume 80, Mean Corpuscular Hemoglobin 25.6L, Mean Corpuscular Hemoglobin Concent 32.1, Red Cell Distribution Width 14.1, Platelet Count 133L, Mean Platelet Volume 9.3, Neutrophils (%) (Auto) 71.6, Lymphocytes ( %) (Auto) 13.9L, Monocytes (%) (Auto) 10.0, Eosinophils (%) (Auto) 3.4H, Basophils (%) (Auto) 1.1, Sodium Level 141, Potassium Level 3.7, Chloride Level 102, Carbon Dioxide Level 25, Anion Gap 14, Blood Urea Nitrogen 15, Creatinine 1.0, Estimat Glomerular Filtration Rate , Glucose Level 83, Calcium Level 8.8 Current Medications Medications (Trade) Dose Ordered Sig/Newton Route PRN Reason Start Time Stop Time Status Last Admin Dose Admin Acetaminophen (Tylenol) 650 mg Q6H PRN ORAL Mild Pain/Temp > 100.5 03/05/17 22:15 04/04/17 22:14 Clonidine HCl 0.1 mg 0.1 mg Q6H PRN ORAL For High Blood Pressure 03/05/17 22:15 04/04/17 22:14 03/09/17 11:06 Dextrose (Dextrose 50%) STAT PRN IV Hypoglycemia 03/05/17 22:15 04/04/17 22:14 03/07/17 12:18 Dextrose/Sodium Chloride (D5ns) 1,000 ml @ 100 mls/hr Q10H IV 03/07/17 13:30 04/06/17 13:29 03/09/17 15:56 Megestrol Acetate (Megace) 400 mg DAILY ORAL 03/09/17 18:00 04/08/17 17:59 03/10/17 08:06 Piperacillin Sod/ Tazobactam Sod 3.375 gm/Dextrose 110 ml @ 27.5 mls/hr Q8H IVPB 03/06/17 00:00 03/13/17 00:00 03/10/17 08:05 Kei Carter MD Mar 10, 2017 09:37
[2017-03-10] MEDS ORDERED: MEGACE ORA400 MG/10 ORAL (09:38)
[2017-03-10] MEDS ORDERED: LEVAQUIN500 MG ORAL (09:38)
--- NOTE | 2017-03-10 10:52 | Infectious Diseases Prog Note ---
Assessment/Plan Assessment/Plan antibiotics : zosyn A 1. pneumonia 2. leucocytosis 3. lung mass s/p biopsy 4. hypercalcemia resolved P 1. d/c zosyn 2. start and continue po levoquin 4 more days 3. will follow up cultures Subjective Constitutional: Denies: chills, fever Respiratory: Denies: dry cough, shortness of breath Gastrointestinal/Abdominal: Denies: diarrhea, nausea, vomiting Musculoskeletal: Denies: pain Allergies: Coded Allergies: No Known Allergies (Unverified , 03/05/17) Objective Vital Signs Last 24 Hour Vital Signs Date Time Temp Pulse Resp B/P Pulse Ox O2 Delivery O2 Flow Rate FiO2 03/10/17 08:02 97.3 78 20 162/86 99 Room Air 03/10/17 04:00 68 03/10/17 03:54 98.8 73 18 148/74 97 Room Air 03/10/17 00:00 70 03/09/17 23:58 98.4 75 19 137/70 94 Room Air 03/09/17 20:06 98.2 87 20 151/80 93 Room Air 03/09/17 20:00 90 03/09/17 16:00 96.6 76 17 150/85 97 Room Air 03/09/17 16:00 80 03/09/17 12:00 97.2 74 18 165/87 95 Room Air 03/09/17 12:00 64 03/09/17 11:06 165/87 Height (Feet): 5 Height (Inches): 0.00 Weight (Pounds): 117 Respiratory/Chest: lungs clear Cardiovascular: normal rate, regular rhythm, no gallop/murmur Abdomen: soft, non tender Extremities: no edema Laboratory Tests Test 03/10/17 07:10 White Blood Count 17.2 K/UL (4.8-10.8) H Red Blood Count 4.68 M/UL (4.70-6.10) L Hemoglobin 12.0 G/DL (14.2-18.0) L Hematocrit 37.3 % (42.0-52.0) L Mean Corpuscular Volume 80 FL (80-99) Mean Corpuscular Hemoglobin 25.6 PG (27.0-31.0) L Mean Corpuscular Hemoglobin Concent 32.1 G/DL (32.0-36.0) Red Cell Distribution Width 14.1 % (11.6-14.8) Platelet Count 133 K/UL (150-450) L Mean Platelet Volume 9.3 FL (6.5-10.1) Neutrophils (%) (Auto) 71.6 % (45.0-75.0) Lymphocytes (%) (Auto) 13.9 % (20.0-45.0) L Monocytes (%) (Auto) 10.0 % (1.0-10.0) Eosinophils (%) (Auto) 3.4 % (0.0-3.0) H Basophils (%) (Auto) 1.1 % (0.0-2.0) Sodium Level 141 mEQ/L (135-145) Potassium Level 3.7 mEQ/L (3.4-4.9) Chloride Level 102 mEQ/L (98-107) Carbon Dioxide Level 25 mEQ/L (20-30) Anion Gap 14 (5-15) Blood Urea Nitrogen 15 mg/dL (7-23) Creatinine 1.0 mg/dL (0.7-1.2) Estimat Glomerular Filtration Rate mL/min (>60) Glucose Level 83 mg/dL (74-106) Calcium Level 8.8 mg/dL (8.6-10.2) EDGARDO VELARDE Mar 10, 2017 10:52
[2017-03-10 11:25] VITALS: BP 171/83
[2017-03-10] MEDS ORDERED: Levofloxacin 500mg tab ORAL SCH (11:30)
[2017-03-10 15:18] VITALS: BP 162/99
[2017-03-10 16:00] VITALS: BP 162/99
--- NOTE | 2017-03-10 16:33 | Cardiology Report ---
APPROVED REPORT EKG Measurement Heart [id number] Sinus tachycardia Possible Left atrial enlargement Left anterior fascicular block Left ventricular hypertrophy Abnormal ECG
[2017-03-10] MEDS ORDERED: Tubing IV Secondary IV ONE (17:01)
[2017-03-10] MEDS ORDERED: D5NS 1000ml IV ONE (17:01)
[2017-03-10] MEDS ORDERED: NS 275ml ONE (17:01)
[2017-03-10] MEDS ORDERED: D5 1/2NS 1000ml IV ONE (17:34)
[2017-03-11 23:09] LABS: PTH-RELATED PROTEIN <1.1 pmol/L (.)
--- NOTE | 2017-03-12 10:29 | Discharge Summary ---
Discharge Summary Hospital Course Date of Admission Mar 05, 2017 at 14:35 Date of Discharge Mar 10, 2017 at 17:35 Admitting Diagnosis CP/weakness HPI Trevor Rhoades is a 81 year old male who was admitted on Mar 05, 2017 at 14:35 for Chest Pain/Weakness Hospital Course [id number] Discharge Discharge Disposition Patient was discharged to SNF/Subacute Facility(03) Discharge Diagnoses: Joleen Crump NP Mar 12, 2017 10:29
--- NOTE | 2017-03-13 03:30 | Discharge Summary 2 SIG ---
DATE OF ADMISSION: 03/05/2017 DATE OF DISCHARGE: 03/10/2017 CONSULTANTS: 1. Joel Morelos M.D. 2. Herbie Page M.D. BRIEF HOSPITAL COURSE: The patient is an 81-year-old male, who was brought to the hospital by the family because of weakness. The patient was seen by physician in the office and was advised admission. On arrival to ED, the patient was lethargic, but without any sign of distress. Laboratories showed a marked leukocytosis. WBC was 20. Hemoglobin and hematocrit were stable. Creatinine was 1.5 and BUN 43. Lactic acid was 6. Calcium was markedly elevated to 16. The CAT scan of the head done showed no acute process. Chest x-ray showed left perihilar nodular density. He underwent a CT of the chest that showed a mass on the left upper lobe consistent with bronchogenic carcinoma with evidence of metastatic lymphadenopathy, evidence of metastasis to the bones and possibly liver. He was admitted to telemetry for the lung mass and hypercalcemia. He was given aggressive IV hydration. Endocrinology was consulted. He was given Aredia. Hypercalcemia workup done. Hypercalcemia was assessed to be non PTH related since PTH level was undetectable. He was also followed by Infectious Disease specialist for pneumonia and was given Zosyn. He had venous duplex of lower extremity that was negative for DVT. On 03/08/2017, he underwent a CT-guided left lung needle biopsy. Post images demonstrated a very small pneumothorax and serial x-rays showed no pneumothorax with interstitial disease likely fibrosis. Pathology result showed adenocarcinoma poorly differentiated. The patient was discharged to SNF. Zosyn was discontinued and to continue p.o. Levaquin for seven more days as outpatient. FINAL DIAGNOSES: 1. Adenocarcinoma of the lung, poorly differentiated. 2. Hypercalcemia secondary to malignancy, resolved. 3. Hypoglycemia, resolved. 4. Pneumonia. Kei Carter M.D. I have been assigned to dictate discharge summary on this account and I was not involved in the patient's management. Joleen Crump N.P. DR: LENORE JOB#: [id number] CC:
== END 2017-03-10 17:35 | DRG 180 ==
LOC: EMR 13:51 → 2E 14:35 → EDBEDREQ 20:52
PROC: 0BBG3ZX Excision of Left Upper Lung Lobe, Percutaneous Approach, Diagnostic (ICD-10-PCS; principal; 2017-03-08)
DX: C34.12 Malignant neoplasm of upper lobe, left bronchus or lung (principal); J18.9 Pneumonia, unspecified organism; N17.9 Acute kidney failure, unspecified; C79.51 Secondary malignant neoplasm of bone; C78.7 Secondary malignant neoplasm of liver and intrahepatic bile duct; E83.52 Hypercalcemia; R53.1 Weakness; E16.2 Hypoglycemia, unspecified; Z87.891 Personal history of nicotine dependence
CPT/HCPCS: 36415; 70450; 71010; 71250; 77012; 80048; 80053; 81003; 82306; 82330; 82550; 82553; 82962; 83519; 83605; 83735; 83880; 83970; 84100; 84484; 85007; 85025; 85610; 85730; 87040; 93005; 93970; J2430; J8499